=== PATIENT | male | born 1945 | race Caucasian/White ===

== ENCOUNTER → 2016-12-24 | Day surgery (SDC) | payer MEDICARE ==
[~2016-12-24] MED LIST: CLARITIN 10MG T10 MG PO; DIGOXIN125 MCG PO; ELIQUIS 5 MG TAB5 MG PO; ENDOCET 10-3251 EACH PO; GABAPENTIN800 MG PO; GLUCOPHAGE500 MG PO; JANUVIA 100 MG100 MG PO; SIMVASTATIN40 MG PO; TOPROL XL200 MG PO; ZESTORETIC 20-1 EACH PO
== END | disposition home or self-care (01) ==
LOC: OR 06:38
PROVIDERS: Internal Medicine Gastroenterology
PROC: 0DBH8ZX Excision of Cecum, Via Natural or Artificial Opening Endoscopic, Diagnostic (ICD-10-PCS; 2016-12-24)
PROC: 0DBK8ZX Excision of Ascending Colon, Via Natural or Artificial Opening Endoscopic, Diagnostic (ICD-10-PCS; principal; 2016-12-24 09:00)
DX: Z12.11 Encounter for screening for malignant neoplasm of colon (principal); D12.0 Benign neoplasm of cecum; D12.2 Benign neoplasm of ascending colon; K57.30 Diverticulosis of large intestine without perforation or abscess without bleeding; K64.0 First degree hemorrhoids; I10 Essential (primary) hypertension; I48.1 Persistent atrial fibrillation; J44.9 Chronic obstructive pulmonary disease, unspecified; N40.0 Benign prostatic hyperplasia without lower urinary tract symptoms; E66.9 Obesity, unspecified; Z68.35 Body mass index [BMI] 35.0-35.9, adult; Z85.46 Personal history of malignant neoplasm of prostate; Z87.891 Personal history of nicotine dependence; Z96.659 Presence of unspecified artificial knee joint; Z98.890 Other specified postprocedural states
CPT/HCPCS: 82962; J7030

== ENCOUNTER → 2020-10-15 | Outpatient (CLI) | payer OTHER, SELFPAY ==
[~2020-10-15] MED LIST changes: +AZELASTINE137 MCG/0.; +DALIRESP 500500 MCG PO; +ELIQUIS5 MG PO; -ENDOCET 10-3251 EACH PO; +FLOMAX 0.4 MG0.4 MG PO; +FLONASE 0.05% N16 GM; +GLUCOPHAGE XR500 M1 PO; +GLUCOTROL 10 MG10 MG PO; +LASIX20 MG PO; +LEVOCETIRIZINE D5 MG PO; +LISINOPRIL-HCT1 EAC1 PO; +METOPROLOL SUC200 MG PO; +MONTELUKAST SOD10 MG PO; +OMEPRAZOLE20 MG PO; +OXYCODONE-ACET1 EACH PO; +SINGULAIR10 MG PO; +SPIRIVA RESPIMAT4 GM INH; +SYMBICORT 16010.2 GM INH; +TRAZODONE HCL100 MG PO
== END ==
LOC: KOH-I 09-25 14:00
DX: J32.9 Chronic sinusitis, unspecified (principal); J34.89 Other specified disorders of nose and nasal sinuses; J34.2 Deviated nasal septum; M95.0 Acquired deformity of nose
CPT/HCPCS: 70486

== ENCOUNTER → 2020-11-18 | Outpatient (CLI) | payer OTHER, SELFPAY | LOC: US 09:30 | PROC: 0GBH3ZX Excision of Right Thyroid Gland Lobe, Percutaneous Approach, Diagnostic (ICD-10-PCS; principal; 2020-11-18) | DX: E04.1 Nontoxic single thyroid nodule (principal) ==

== ENCOUNTER → 2021-01-22 | Day surgery (SDC) | payer OTHER | END | disposition home or self-care (01) | LOC: OR 07:10 | DX: D12.0 Benign neoplasm of cecum (principal); K57.30 Diverticulosis of large intestine without perforation or abscess without bleeding; D68.9 Coagulation defect, unspecified; I10 Essential (primary) hypertension; E11.9 Type 2 diabetes mellitus without complications; E66.01 Morbid (severe) obesity due to excess calories; I48.91 Unspecified atrial fibrillation; Z82.49 Family history of ischemic heart disease and other diseases of the circulatory system; Z87.891 Personal history of nicotine dependence; Z68.35 Body mass index [BMI] 35.0-35.9, adult | CPT/HCPCS: 82962; J2704; J7040 ==

== ENCOUNTER → 2022-03-03 | Outpatient (CLI) | payer OTHER ==
[~2022-03-03] MED LIST changes: +ALBUTEROL2.5 MG/3 M INH
== END ==
LOC: CT 10:00
DX: R19.04 Left lower quadrant abdominal swelling, mass and lump (principal); I10 Essential (primary) hypertension
CPT/HCPCS: 36415; 82565; 84520; Q9967

== ENCOUNTER → 2022-03-05 | Day surgery (SDC) | payer OTHER | END | disposition home or self-care (01) | LOC: OR 06:32 | DX: D12.0 Benign neoplasm of cecum (principal); D12.3 Benign neoplasm of transverse colon; K64.0 First degree hemorrhoids; Z86.010 Personal history of colon polyps; I10 Essential (primary) hypertension; I48.91 Unspecified atrial fibrillation; E78.5 Hyperlipidemia, unspecified; K21.9 Gastro-esophageal reflux disease without esophagitis; I25.10 Atherosclerotic heart disease of native coronary artery without angina pectoris; E11.9 Type 2 diabetes mellitus without complications; Z95.5 Presence of coronary angioplasty implant and graft; Z79.01 Long term (current) use of anticoagulants; Z79.84 Long term (current) use of oral hypoglycemic drugs; Z79.899 Other long term (current) drug therapy | CPT/HCPCS: 82962; J2704; J7040 ==

== ENCOUNTER → 2022-05-05 | Outpatient (CLI) | payer OTHER ==
[~2022-05-05] MED LIST changes: +CENTRUM COMPLE1 EACH PO; +CRESTOR20 MG PO; +IPRAT-ALBUT 0.5-3 ML NEB; +NORVASC5 MG PO; +VITAMIN C1000 MG PO; +ZINC PO
[2022-05-05 14:33] LABS: HEMOGLOBIN 13.8 gm/dl (14.0-17.5); RED BLOOD COUNT 4.74 M/UL (4.20-5.50); WHITE BLOOD COUNT 8.7 K/UL (4.5-11.0)
[2022-05-05 14:51] LABS: BUN/CREATININE RATIO 25 (0-10)
== END ==
LOC: OPSV2 05-04 08:00
PROVIDERS: Anesthesiology
DX: Z01.818 Encounter for other preprocedural examination (principal); K63.5 Polyp of colon; I25.10 Atherosclerotic heart disease of native coronary artery without angina pectoris; I10 Essential (primary) hypertension; E11.9 Type 2 diabetes mellitus without complications
CPT/HCPCS: 36415; 71046; 80048; 85025

== ENCOUNTER 2022-05-11 06:17 | Inpatient (IN) | payer OTHER ==
[~2022-05-11] VITALS: Ht 175.3 cm; Wt 106.6 kg
[2022-05-11] MEDS ORDERED: VITAMIN B-122000 MC1 PO (07:32)
[2022-05-11] MEDS ORDERED: AZELASTINE HCL (07:32)
[2022-05-11] MEDS ORDERED: VIAGRA25 MG PO (07:33)
[2022-05-11 07:51] LABS: BUN/CREATININE RATIO 21 (0-10)
[2022-05-11] MEDS ORDERED: PROAIR HFA8.5 GM INH (18:49)
[2022-05-11] MEDS ORDERED: CYCLOBENZAPRINE10 MG PO (18:50)
[2022-05-11] MEDS ORDERED: LEVOCETIRIZINE D5 MG PO (18:50)
[2022-05-11] MEDS ORDERED: DALIRESP500 MCG PO (18:51)
[2022-05-14 18:04] LABS: HEMOGLOBIN 13.3 gm/dl (14.0-17.5); RED BLOOD COUNT 4.59 M/UL (4.20-5.50); WHITE BLOOD COUNT 17.8 K/UL (4.5-11.0)
[2022-05-14 18:42] LABS: BUN/CREATININE RATIO 19 (0-10)
[2022-05-15 02:56] LABS: RED BLOOD COUNT 4.49 M/UL (4.20-5.50); WHITE BLOOD COUNT 16.7 K/UL (4.5-11.0)
[2022-05-15 04:15] LABS: BUN/CREATININE RATIO 19 (0-10)
[2022-05-16 02:44] LABS: HEMOGLOBIN 12.3 gm/dl (14.0-17.5); RED BLOOD COUNT 4.24 M/UL (4.20-5.50); WHITE BLOOD COUNT 16.8 K/UL (4.5-11.0)
[2022-05-16 03:38] LABS: BUN/CREATININE RATIO 22 (0-10)
[2022-05-17 01:56] LABS: HEMOGLOBIN 11.2 gm/dl (14.0-17.5); RED BLOOD COUNT 3.82 M/UL (4.20-5.50); WHITE BLOOD COUNT 13.5 K/UL (4.5-11.0)
[2022-05-17 02:17] LABS: BUN/CREATININE RATIO 22 (0-10)
--- NOTE | 2022-05-17 14:33 | NUR ---
WOUND CARE DONE TO ABDOMEN. SITE CLEANSED WITH BETADINE AND APPLIED NEW DRESSINGS TO SITES. PT TOLERATED WELL. SITE IS CLEAN AND DRY NO REDNESS OR DRAINAGE NOTED. PROSPER DRAIN CONTINUES TO DRAIN BLOODY FLUIDS.
[2022-05-18 02:20] LABS: BUN/CREATININE RATIO 19 (0-10)
[2022-05-18 02:32] LABS: HEMOGLOBIN 11.5 gm/dl (14.0-17.5); RED BLOOD COUNT 3.97 M/UL (4.20-5.50); WHITE BLOOD COUNT 13.1 K/UL (4.5-11.0)
[2022-05-19 02:59] LABS: HEMOGLOBIN 11.4 gm/dl (14.0-17.5); RED BLOOD COUNT 3.95 M/UL (4.20-5.50)
[2022-05-19 03:22] LABS: BUN/CREATININE RATIO 17 (0-10)
[2022-05-20 03:54] LABS: HEMOGLOBIN 12.3 gm/dl (14.0-17.5); RED BLOOD COUNT 4.29 M/UL (4.20-5.50); WHITE BLOOD COUNT 10.9 K/UL (4.5-11.0)
[2022-05-20 04:37] LABS: BUN/CREATININE RATIO 20 (0-10)
[2022-05-20] MEDS ORDERED: COLACE100 MG PO (10:49)
[2022-05-20] MEDS ORDERED: LOPRESSOR 25 MG25 MG PO (10:49)
[2022-05-28] MEDS ORDERED: LOPRESSOR 25 MG25 MG PO (09:12)
[2022-05-28] MEDS ORDERED: AMOX TR-K CLV1 EAC4 PO (09:12)
[2022-05-28] MEDS ORDERED: DIGOXIN125 MCG PO (09:12)
== END 2022-05-20 11:31 | disposition home or self-care (01) | DRG 329 ==
LOC: PROG CARE 06:17 → OR 06:17 → PROG CARE 09:08 → OR 12:26 → MED SURG 4 05-13 16:02 → PROG CARE 05-14 17:13
PROVIDERS: Internal Medicine; ADMIT Surgery
PROC: B24BZZZ Ultrasonography of Heart with Aorta (ICD-10-PCS; principal; 2022-05-11 08:45)
PROC: 0DTF0ZZ Resection of Right Large Intestine, Open Approach (ICD-10-PCS; 2022-05-14)
DX: D12.0 Benign neoplasm of cecum (principal); A41.9 Sepsis, unspecified organism; I48.21 Permanent atrial fibrillation; N39.0 Urinary tract infection, site not specified; J44.9 Chronic obstructive pulmonary disease, unspecified; E11.9 Type 2 diabetes mellitus without complications; I10 Essential (primary) hypertension; K21.9 Gastro-esophageal reflux disease without esophagitis; G47.00 Insomnia, unspecified; I25.10 Atherosclerotic heart disease of native coronary artery without angina pectoris; E78.5 Hyperlipidemia, unspecified; N40.0 Benign prostatic hyperplasia without lower urinary tract symptoms; Z96.652 Presence of left artificial knee joint; I27.20 Pulmonary hypertension, unspecified; Z96.649 Presence of unspecified artificial hip joint; E66.3 Overweight; Z98.890 Other specified postprocedural states; Z79.899 Other long term (current) drug therapy; Z80.6 Family history of leukemia; Z82.49 Family history of ischemic heart disease and other diseases of the circulatory system; Z83.6 Family history of other diseases of the respiratory system; Z82.5 Family history of asthma and other chronic lower respiratory diseases; Z87.891 Personal history of nicotine dependence; Z79.4 Long term (current) use of insulin; Z95.5 Presence of coronary angioplasty implant and graft; Z85.46 Personal history of malignant neoplasm of prostate; Z68.27 Body mass index [BMI] 27.0-27.9, adult
CPT/HCPCS: ECHO; 36415; 71045; 80048; 80053; 80162; 81001; 82962; 83605; 83735; 83880; 84100; 84439; 84443; 85025; 85027; 86140; 87040; 87086; 93005; 93306; 94640; 94664; 94760; 97116-GP-CQ; 97162; 97165; 97530; 97530-GP-CQ; 97535; A6212; J0690; J1100; J1170; J2001; J2185; J2270; J2370; J2405; J2704; J3010; J3475